=== PATIENT | male | born 1980 | race Asian ===

== ENCOUNTER 2020-10-15 20:19 | Emergency (ER) | payer OTHER ==
[~2020-10-15] VITALS: Ht 190.5 cm; Wt 122.5 kg
[2020-10-15 21:24] LABS: POTASSIUM 3.5 mmol/L (3.6-5.2); SODIUM 136 mmol/L (136-145)
[2020-10-15 21:28] LABS: PLATELET COUNT 128 K/uL (142-355)
[2020-10-15 21:35] LABS: PARTIAL THROMBOPLASTIN TIME 29.7 SECONDS (24.5-33.6)
[2020-10-15 22:35] VITALS: BP 140/88; TEMP 99
== END 2020-10-15 22:35 | disposition home or self-care (01) ==
LOC: ED 20:19
PROVIDERS: Hospitalist
DX: I16.0 Hypertensive urgency (principal); R50.9 Fever, unspecified; J06.9 Acute upper respiratory infection, unspecified; U07.1 COVID-19; F17.210 Nicotine dependence, cigarettes, uncomplicated
CPT/HCPCS: 36415; 80053; 82550; 82553; 83880; 84484; 85027; 85610; 85730; 87635; 87651; 93005; 96374; 96375; 99284; J0360; J1100; J2405; U0003